=== PATIENT | male | born 1945 | race Caucasian/White ===

== ENCOUNTER 2021-02-28 08:17 | Inpatient (IN) | payer OTHER ==
[~2021-02-28] VITALS: Ht 180.3 cm; Wt 93.4 kg
--- NOTE | ~2021-02-28 | EMS ---
[address] [address] EMS Patient Care Report Name: LANCE BELL Room #: 457-P ADM IN M.R.#: [id number] Admission: 02/28/21 Attend Phys: Neli Morley MD Discharge: Date of : 45 Report #: [id number] THIS REPORT FOR: //name// Report Transmitted: 03/01/2021 08:21 EMS Care Summary [facility] Incident [id number] @ 02/28/2021 07:34 Incident Location [facility] [address] [place] [address] Patient LANCE BELL Male, 76 Years 1945 Patient Address [address] [place] [address] Patient History Chronic Obstructive Pulmonary Disease (COPD),Diabetes,Hypertension (HTN), Patient Allergies No known allergies, Chief Complaint dizzy and light headed Disposition Transported No Lights/[place] Reason Diabetic Problem Transported To [facility] Narrative chief complaint: 76 y/o male felt jackson of dizziness, and is lightheaded. pt states: he was going to the bathroom, sitting on the toilet and all of a sudden got real sweaty and lightheaded. when he stood up after felt dizzy. he did have some diarrhea while using the bathroom. [address] [address] EMS Patient Care Report Name: LANCE BELL Room #: 457-P [facility] IN ..#: [id number] Admission: 02/28/21 Attend Phys: Neli Morley MD Discharge: Date of : 45 Report #: [id number] pt denies: cp,sob,pain aos found pt sitting in chair with abcs intact. received report and complaint from pt. pts vitals and loc were assessed. pt was able to stand and pivot to stretcher with assistance. in ambulance, iv access was attempted but unsuccessful. pt was connected to cardiac tech per protocol. en route, pt was subjected to a modified orthostatic test, due to not being able to stand while ambulance was moving. report was given to receiving facility prior to arrival. en route, pts vitals and loc were monitored. at destination, pt was wheeled into assigned room on stretcher. pt was transferred to bed via sheet drag maneuver. gave report to receiving rn. transferred care without complication and went back into service. Initial Vitals @07:50 @07:58P: 98,R: 14,BP: 108/53,Pain: 0/10,GCS: 15,Glucose: 133,SpO2: 94,Revised Trauma: 12, @08:02P: 98,R: 16,BP: 120/60,Pain: 0/10,GCS: 15,SpO2: 93,Revised Trauma: 12, @07:48P: 102,R: 14,BP: 90/50,GCS: 15,SpO2: 93,Revised Trauma: 12, @08:05P: 100,R: 16,BP: 98/56,Pain: 0/10,GCS: 15,SpO2: 94,Revised Trauma: 12, Assessments @07:59MENTAL:Person Oriented,Time Oriented,Place Oriented,Event Oriented,SKIN:Diaphoresis,HEENT:Head/Face: No Abnormalities,Neck/Airway: No Abnormalities,LUNG SOUNDS:General: Diarrhea,ABDOMEN:General: Diarrhea,PELVIS//GI:No Abnormalities,EXTREMITIES:Left Arm: No Abnormalities,Right Arm: No Abnormalities,Left Leg: No Abnormalities,Right Leg: No Abnormalities,PULSE:NEURO:No Abnormalities, Impression Hypotension Procedures @07:473-Lead ECGResponse: UnchangedSucceeded@07:47ALS AssessmentResponse: UnchangedSucceeded@07:47Saline Lock cc (18 ga) Site: Antecubital-LeftResponse: UnchangedFailed@07:5012-Lead ECGSucceeded Timeline 07:33,Call Received 07:33,Psap Call 07:34,Dispatched 07:35,[place] [address] EMS Patient Care Report Name: LANCE BELL Room #: 457-P ADM IN .R.#: [id number] Admission: 02/28/21 Attend Phys: Neli Morley MD Discharge: Date of : 45 Report #: [id number] 07:41,Initial Responder On Scene 07:41,On Scene 07:43,At Patient 07:47,ALS Assessment,Response: UnchangedSucceeded, 07:47,3-Lead ECG,Response: UnchangedSucceeded, 07:47,Saline Lock cc 18 ga Site: Antecubital-Left,Response: UnchangedFailed, 07:48,BP: 90/50 M,PULSE: 102,RR: 14 R,SPO2: 93 Ox,ETCO2: ,BG: ,PAIN: ,GCS: 15, 07:50,12-Lead ECG,Succeeded, 07:50,BP: / M,PULSE: ,RR: R,SPO2: Ox,ETCO2: ,BG: ,PAIN: ,GCS: , 07:55,Depart Scene 07:58,BP: 108/53 M,PULSE: 98,RR: 14 R,SPO2: 94 Ox,ETCO2: ,B,PAIN: 0,GCS: 15, 08:02,BP: 120/60 M,PULSE: 98,RR: 16 R,SPO2: 93 Ox,ETCO2: ,BG: ,PAIN: 0,GCS: 15, 08:05,BP: 98/56 M,PULSE: 100,RR: 16 R,SPO2: 94 Ox,ETCO2: ,BG: ,PAIN: 0,GCS: 15, 08:09,At Destination 08:25,Call Closed Disclaimer v1.1 Copyright 2020 [employer] This EMS Care Summary contains data elements from the applicable legal record (which may be displayed differently). It is designed to provide pertinent information for the following purposes: continuity of care, clinical quality, and state data reporting. The complete legal record is available to ED staff and administrators of the receiving hospital in [employer] Patient Tracker. All data is provided "as is."
[2021-02-28 08:21] VITALS: BP 117/63
[2021-02-28 08:57] LABS: HEMATOCRIT 46.8 % (42.0-52.0); HEMOGLOBIN 15.8 gm/dL (14.0-18.0); MCH 28.1 pg (26.0-34.0); MCHC 33.7 g/dL (28.0-37.0); MCV 83.3 fL (80.0-100.0); RBC 5.62 mil/uL (4.50-6.00); RDW 14.6 % (10.5-14.5); WBC 11.9 thou/uL (4.0-11.0)
[2021-02-28 09:15] LABS: ANION GAP 13 mmol/L (7-16); BUN 30 mg/dL (7-18); CALCIUM 9.4 mg/dL (8.5-10.1); CHLORIDE 102 mmol/L (98-107); CO2 26 mmol/L (21-32); CREATININE 1.5 mg/dL (0.7-1.3); GLUCOSE 176 mg/dL (74-106); POTASSIUM 3.3 mmol/L (3.5-5.1); SODIUM 141 mmol/L (136-145)
[2021-02-28 09:26] LABS: ALBUMIN 3.9 g/dL (3.4-5.0); LIPASE 1906 U/L (73-393); SGOT 22 U/L (15-37); SGPT 24 U/L (30-65); TOTAL BILIRUBIN 0.5 mg/dL (0.2-1.0); TOTAL PROTEIN 7.7 g/dL (6.4-8.2); TROPONIN-I <0.06 ng/mL (<0.06)
[2021-02-28 09:34] LABS: URINE BILIRUBIN NEGATIVE (Negative); URINE BLOOD NEGATIVE (Negative); URINE CLARITY CLEAR; URINE COLOR YELLOW; URINE GLUCOSE-RANDOM* NEGATIVE (Negative); URINE KETONES TRACE (Negative); URINE LEUKOCYTES-REFLEX TRACE (Negative); URINE NITRITE-REFLEX NEGATIVE (Negative); URINE PROTEIN (DIPSTICK) TRACE (Negative); URINE UROBILINOGEN 0.2 E.U./dl (0.2-1.0)
--- NOTE | 2021-02-28 12:01 | EKG ---
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
[2021-02-28] MEDS ORDERED: PROAIR HFA8.5 GM INH (14:10)
[2021-02-28] MEDS ORDERED: ASA81BEC PO (14:11)
[2021-02-28] MEDS ORDERED: ALOGLIPTIN12.5 MG PO (14:11)
[2021-02-28] MEDS ORDERED: CALCIUM + VITA1 EACH PO (14:12)
[2021-02-28] MEDS ORDERED: COLESTIPOL HCL1 G1 PO (14:13)
[2021-02-28] MEDS ORDERED: ZYRTEC10 M4 PO (14:13)
[2021-02-28] MEDS ORDERED: VITAMIN B-121000 MC2 SUBLING (14:14)
[2021-02-28] MEDS ORDERED: DULOXETINE HCL60 MG PO (14:15)
[2021-02-28] MEDS ORDERED: DILTIAZEM HCL30 MG PO (14:15)
[2021-02-28] MEDS ORDERED: FLUTICASONE PRO30 G1 TOP (14:17)
[2021-02-28] MEDS ORDERED: NEURONTIN 400M400 M2 PO (14:25)
[2021-02-28] MEDS ORDERED: TRIAMTERENE/HCT1 CA1 PO (14:26)
[2021-02-28] MEDS ORDERED: MAGNESIUM OXID400 M2 PO (14:27)
[2021-02-28] MEDS ORDERED: METFORMIN HCL500 M3 PO (14:27)
[2021-02-28] MEDS ORDERED: ASMANEX220 MC2 INH (14:28)
[2021-02-28] MEDS ORDERED: SUPER THERAVIT1 EACH PO (14:28)
[2021-02-28] MEDS ORDERED: POTASSIUM20 PO (14:29)
[2021-02-28] MEDS ORDERED: PROTONIX40 M2 PO (14:29)
[2021-02-28] MEDS ORDERED: TRAZODONE HCL100 MG PO (14:30)
[2021-02-28] MEDS ORDERED: OLODATEROL INH (14:32)
[2021-02-28] MEDS ORDERED: TIOTROPIUM INH (14:32)
[2021-02-28 18:15] VITALS: BP 136/68
[2021-02-28 18:30] VITALS: BP 136/68
--- NOTE | 2021-02-28 18:56 | NUR ---
RECIEVED REPORT FROM ED NURSE AT APPROX 1830; WILL PASS ONTO ONCOMING NURSE
[2021-02-28 19:02] VITALS: BP 139/71
--- NOTE | 2021-03-01 04:49 | NUR ---
PT ARRIVED ON UNIT AT 182. ADMITTED FROM HOME WITH PANCREATITIS AND DIZZINESS. DENIES PAIN. DENIES NAUSEA. RESTING COMFORTABLY. NO NEEDS VOICED. CALL LIGHT WITHIN REACH. FREQUENT OBSERVATION.
[2021-03-01 07:39] VITALS: BP 158/76
--- NOTE | 2021-03-01 09:24 | NUR ---
WOUND CONSULT; ASSESSMENT OF THE LEFT 3RD TOE REVEALED AN UNSTABLE BLISTER. NO S/S OF INFECTION. THE SUPERIOR ASPECT OF THE TOE IS AFFECTED. PATIENTS FOOT IS INSENSATE. NO DRAIAGE SEEN. RECOMMENDATIONS: -PAINT WITH BETADINE DAILY -WRAP WITH A SMALL PIECE OF OPTIFOAM AG. DISCUSSED WITH HENRRY
--- NOTE | 2021-03-01 11:51 | NUR ---
PT ADMITTED RELATED TO PANCREATITIS--DIZZINESS. CM REVIEWED CHART ANS SPOKE WITH CARE TEAM. CM MET WITH PT, SPOUSE, AND DTR AT BEDSIDE THIS DAY. PT APPEARED TO BE A&O X4. CM ROLE INTRODCUED. PT INDICATED HE RESIDES IN A HOUSE WITH HIS SPOUSE. TP INDICATED 2 STEPS TO ENTER AND NO STEPS HE NEEDS TO USE INSIDE. 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 PT GOES TO THE DE FOR CARE FOLLOWS WITH [facility] . 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 PT INDICATED HE PLANS TO DC HOME ONCE MEDICALLY STABLE. PT TO HAVE AN ECHO AND DEPENDING ON RESULTS MAY BE ABLE TO DC HOME TODAY. CM FOLLOWING REGARDNG DC PLANNING.
[2021-03-01] MEDS ORDERED: SPIRONOLACTONE25 M1 PO (12:28)
--- NOTE | 2021-03-01 12:34 | 2DMMODE ---
[facility] [address] [place] [address] 2 D/M-MODE ECHOCARDIOGRAM Name: LANCE BELL Room #: 457-P ADM IN M.R.#: [id number] Admission: 02/28/21 Attend Phys: Neli Morley MD Discharge: Date of : 45 Report #: [id number] THIS REPORT FOR: cc: [facility] - Clinic physician unknown [facility] - Clinic physician unknown Stewart Muro MD ~ APPROVED REPORT Study performed: 03/01/2021 11:21:58 EXAM: Comprehensive 2D, Doppler, and color-flow Echocardiogram Patient Location: Bedside Room #: [facility] Status: routine BSA: 2.13 HR: 74 bpm BP: 158/76 mmHg Rhythm: NSR Other Information Study Quality: Good Indications Evaluate for hypotension. Hx: COPD, DM, HTN, HLP. 2D Dimensions RVDd: 30.75 mm IVSd: 10.01 (7-11mm) LVOT Diam: 20.92 (18-24mm) LVDd: 45.31 mm PWd: 10.86 (7-11mm) Ascending Ao: 34.48 (22-36mm) LVDs: 27.95 (25-40mm) Left Atrium: 35.35 (27-40mm) Aortic Root: 31.82 mm Volumes Left Atrial Volume (Systole) Single Plane 4CH: 54.95 mL Single Plane 2CH: 54.76 mL LA ESV Index: 28.00 mL/m2 Aortic Valve AoV Peak Kenrick.: 1.38 m/s AO Peak Gr.: 7.60 mmHg LVOT Max P.22 mmHg LVOT Max V: 1.14 m/s [facility] [address] [place] [address] 2 D/M-MODE ECHOCARDIOGRAM Name: LANCE BELL Room #: 457-P [facility] IN .R.#: [id number] Admission: 02/28/21 Attend Phys: Peewee Lazcano Discharge: Date of : 45 Report #: [id number] SHILOH Vmax: 2.85 cm2 Mitral Valve E/A Ratio: 0.8 MV Decel. Time: 160.97 ms MV E Max Kenrick.: 0.83 m/s MV A Kenrick.: 1.01 m/s MV PHT: 46.68 ms IVRT: 83.04 ms Pulmonary Valve PV Peak Kenrick.: 1.04 m/s PV Peak Gr.: 4.35 mmHg Tricuspid Valve TR Peak Kenrick.: 2.35 m/s RAP Estimate: 5.00 mmHg TR Peak Gr.: 22.00 mmHg PA Pressure: 27.00 mmHg Left Ventricle The left ventricle is normal size. There is normal LV segmental wall motion. There is normal left ventricular wall thickness. Left ventricular systolic function is normal. LVEF is 60-65%. Mild diastolic dysfunction is present (impaired relaxation pattern). Right Ventricle The right ventricle is normal size. The right ventricular systolic function is normal. Atria The left atrium size is normal. The right atrium size is normal. Aortic Valve The aortic valve is normal in structure. Trace aortic regurgitation. There is no aortic valvular stenosis. Mitral Valve The mitral valve is normal in structure. Trace mitral regurgitation. Tricuspid Valve The tricuspid valve is normal in structure. Trace tricuspid regurgitation. Estimated PAP is 27mmHg. Pulmonic Valve [facility] [address] [place] [address] 2 D/M-MODE ECHOCARDIOGRAM Name: LANCE BELL Room #: [address] [place] [address] IN ..#: [id number] Admission: 02/28/21 Attend Phys: Peewee Lazcano Discharge: Date of : 45 Report #: [id number] The pulmonary valve is normal in structure. Trace pulmonic regurgitation. Great Vessels The aortic root is normal in size. The ascending aorta is normal in size. IVC is normal in size and collapses >50% with inspiration. Pericardium There is no pericardial effusion. <Conclusion> The left ventricle is normal size. There is normal LV segmental wall motion. LVEF is 60-65%. The left atrium size is normal. The aortic valve is normal in structure. Trace aortic regurgitation. The mitral valve is normal in structure. Trace mitral regurgitation. The tricuspid valve is normal in structure. Trace tricuspid regurgitation. Estimated PAP is 27mmHg. The pulmonary valve is normal in structure. Trace pulmonic regurgitation. The aortic root is normal in size. There is no pericardial effusion. <ELECTRONICALLY SIGNED> By: Stewart Muro MD 03/01/21 1233 1233 1233 Stewart Muro MD /INF
[2021-03-01 13:18] VITALS: BP 157/79
[2021-03-01 13:19] VITALS: BP 159/78; BP 159/86
[2021-03-01 14:20] VITALS: BP 159/86
--- NOTE | 2021-03-01 14:42 | NUR ---
ASSUMED CARE OF PATIENT AT SHIFT CHANGE. ASSESSMENT CHARTED. UPON ASSESSMENT PATIENT WAS VERY UPSET, CURSING AND BEING VERBALLY AGGRESSIVE; UPSET ABOUT NOT HAVING HIS MEDICATIONS RESTARTED. PROVIDER WAS PAGED AND MEDS RESTARTED. PATIENT WAS CALM AFTER MEDICATIONS WERE ADMINISTERED. ECHOCARDIAGRAM COMPLETED TODAY WITH NORMAL FINDINGS. ORTHOSTATIC BP'S COMPLETE WITH NO ISSUES. PATIENT WAS PRINTED EDUCATION & MEDICATION INFO. IV DISCONTINUED. AWAITING FINALIZED DISCHARGE ORDERS
--- NOTE | 2021-03-04 14:00 | HC ---
[facility] [place] [address] CONSULTATION Name: LANCE BELL Room #: [facility] IN .R.#: [id number] Admission: 02/28/21 Attend Phys: Neli Morley MD Discharge: 03/01/21 Date of : 45 Report #: [id number] THIS REPORT FOR: cc: [facility] - Clinic physician unknown [facility] - Clinic physician unknown Ponce Chou MD ~ DATE OF SERVICE: 03/01/2021 WOUND CARE PROGRESS NOTE PERSONAL PHYSICIAN: Not on staff. CHIEF COMPLAINT: Left third toe blister. HISTORY OF PRESENT ILLNESS: This is a 76-year-old white male who was admitted for pancreatitis yesterday through the Emergency Department and states he noted a blister on his left third toe for the past 3 or 4 days. The patient states that it spontaneously ruptured yesterday. The patient has not had any other associated ulcerations in the past. The patient denies any other recent illnesses or concerns. PAST MEDICAL HISTORY: Significant for COPD, diabetes mellitus, rheumatoid arthritis, hypertension, hyperlipidemia, neuropathy, and current pancreatitis. CURRENT MEDICATIONS: Multiple, reviewed the patient's medication list. DRUG ALLERGIES: LISINOPRIL, METHOTREXATE AND PREDNISONE. SOCIAL HISTORY: The patient smokes 1 pack of cigarettes daily, drinks alcohol socially. FAMILY HISTORY: Not pertinent to current medical condition. REVIEW OF SYSTEMS: CONSTITUTIONAL: The patient denies fevers or chills. NEUROLOGIC: The patient complains of overall generalized weakness and dizziness, but no isolated weakness in arms or legs. EYES: No complaints. EARS, NOSE AND THROAT: No complaints. CARDIAC: The patient denies chest pain, palpitations, peripheral edema. RESPIRATORY: The patient denies shortness of breath, cough or wheezes. GASTROINTESTINAL: The patient does complain of mild nausea, abdominal pain, and loose stools. GENITOURINARY: The patient denies urgency or frequency. MUSCULOSKELETAL: No complaints. SKIN: There is a blister to the left third toe, which has spontaneously [facility] [address] [place] [address] CONSULTATION Name: LANCE BELL Room #: 457-[facility] IN [facility].#: [id number] Admission: 02/28/21 Attend Phys: Neli Morley MD Discharge: 03/01/21 Date of : 45 Report #: [id number] ruptured. PHYSICAL EXAMINATION: VITAL SIGNS: Temperature 36.6, pulse 67, respirations 17, BP 158/76. GENERAL: This is an alert and oriented x 3, pleasant white male, who is absolutely in no distress. HEENT: He is normocephalic, atraumatic. Mucous membranes are moist. Pupils are round. Sclerae white. NECK: Supple, nontender. LUNGS: Clear. HEART: Regular. ABDOMEN: Soft, mild tenderness noted in the epigastric region without rebound or guarding. EXTREMITIES: The patient moves all extremities without difficulty. The patient has 1+ dorsalis pedis pulses bilaterally. Evaluation of left third toe reveals an unroofed blister without obvious signs of cellulitis. No signs of any other open wounds. The blister has intact dermal tissue underneath. Bilateral heels are intact. NEUROLOGIC: Cranial nerves 2-12 are grossly intact. Motor and sensory are grossly intact. LABORATORY VALUES: White count 11.9, hemoglobin 15.8, albumin 3.9, amylase 241. IMPRESSION: 1. Bullous lesion, left third toe, now spontaneously ruptured without signs of cellulitis. 2. Pancreatitis. 3. Generalized debility. PLAN: At this time, we will use a silver foam wrapped around the left third toe with changes every other day. We will keep this in place with Conform. We will check arterial Dopplers to make sure the patient has adequate blood flow for healing. We will make sure we maximize the patient's oral protein supplementation for continued healing. We will utilize physical and occupational therapy for strengthening and we will continue to follow the patient down. <ELECTRONICALLY SIGNED> By: Ponce Chou MD 03/04/21 1400 1212 0555 Ponce Chou MD /nt
== END 2021-03-01 16:10 | disposition home or self-care (01) | DRG 640 ==
LOC: ER 08:17 → 4W 13:57 → EROBS 13:57 → 4W 18:34
PROVIDERS: Student in an Organized Health Care Education/Training Program; ADMIT Hospitalist; ATTEND Hospitalist
DX: E86.0 Dehydration (principal); K85.90 Acute pancreatitis without necrosis or infection, unspecified; N17.9 Acute kidney failure, unspecified; M06.9 Rheumatoid arthritis, unspecified; J44.9 Chronic obstructive pulmonary disease, unspecified; I10 Essential (primary) hypertension; E78.5 Hyperlipidemia, unspecified; R53.81 Other malaise; E11.40 Type 2 diabetes mellitus with diabetic neuropathy, unspecified; I95.9 Hypotension, unspecified; E87.6 Hypokalemia; S90.425A Blister (nonthermal), left lesser toe(s), initial encounter; X58.XXXA Exposure to other specified factors, initial encounter; Y93.89 Activity, other specified; Y92.89 Other specified places as the place of occurrence of the external cause; Y99.8 Other external cause status; Z87.891 Personal history of nicotine dependence; Z88.7 Allergy status to serum and vaccine; Z90.49 Acquired absence of other specified parts of digestive tract; Z83.3 Family history of diabetes mellitus
CPT/HCPCS: 10045